=== PATIENT | female | born 1955 | race Caucasian/White ===

== ENCOUNTER 2021-03-28 09:20 | Emergency (ER) | payer SELFPAY ==
[2021-03-28] MEDS ORDERED: Lidocaine 1% (PF) 30 ML VIAL ONE (09:41)
[2021-03-28] MEDS ORDERED: Bacitracin 1 PK ONE (10:01)
== END 2021-03-28 10:27 | disposition home or self-care (01) ==
LOC: NAV ERS 09:20
DX: S61.452A Open bite of left hand, initial encounter (principal); E03.9 Hypothyroidism, unspecified; Z79.899 Other long term (current) drug therapy
CPT/HCPCS: 12002; J2001